=== PATIENT | male | born 1975 ===

== ENCOUNTER 2022-04-13 12:20 | Emergency (ER) | payer SELFPAY ==
[~2022-04-13] VITALS: Ht 177.8 cm; Wt 77.3 kg
[2022-04-13 13:05] VITALS: BP 151/80
== END 2022-04-13 15:07 | disposition left against medical advice (07) ==
LOC: ER 12:20
DX: R10.9 Unspecified abdominal pain (principal); Z53.21 Procedure and treatment not carried out due to patient leaving prior to being seen by health care provider